=== PATIENT | male | born 1995 | race Caucasian/White ===

== ENCOUNTER 2018-06-11 15:08 | Emergency (ER) | payer BC ==
[2018-06-11 16:03] VITALS: BP 114/54
--- NOTE | 2018-06-11 17:10 | UC ---
Skin Complaint HPI - HPI Summary HPI Summary: pt c/o of "sores" on right anterior upper thigh. Pt is concerned about staph infection. Pt is a student at [employer], "works out" frequently and has HX of staph infection. - History of Current Complaint Chief Complaint: [employer] Time Seen by Provider: 06/11/18 16:57 Stated Complaint: RIGHT LEG/THIGH COMPLAINT Hx Obtained From: Patient Onset/Duration: Gradual Onset, Lasting Days, Still Present Skin Exposure Onset/Duration: Days Ago Timing: Constant Onset Severity: Mild Current Severity: Mild Pain Intensity: 0 Location: Discrete - right upper htigh Character: Redness, Raised Alleviating Factor(s): Unknown Associated Signs & Symptoms: Positive: Tenderness - Allergy/Home Medications Allergies/Adverse Reactions: Allergies Allergy/AdvReac Type Severity Reaction Status Date / Time seasonal Allergy Congestion Uncoded 06/11/18 16:03 Home Medications: Home Medications Fluticasone NASAL SPRAY 50MCG* [Flonase NASAL SPRAY 50MCG*] 1 spray BOTH NARES DAILY PRN 06/11/18 [History Confirmed 06/11/18] Review of Systems Constitutional: Negative Skin: Other - scabs, erythema Eyes: Negative ENT: Negative Respiratory: Negative Cardiovascular: Negative Gastrointestinal: Negative Genitourinary: Negative Motor: Negative Neurovascular: Negative Musculoskeletal: Negative Neurological: Negative Psychological: Negative Is Patient Immunocompromised?: No All Other Systems Reviewed And Are Negative: Yes PMH/Surg Hx/FS Hx/Imm Hx Previously Healthy: Yes - Surgical History Surgical History: None - Family History Known Family History: Positive: Diabetes - paternal grandfather Negative: Respiratory Disease - Social History Occupation: Student - [employer] Lives: With Family Alcohol Use: Weekly Alcohol Amount: 40 Substance Use Type: None Smoking Status (MU): Never Smoked Tobacco Have You Smoked in the Last Year: No - Immunization History Most Recent Influenza Vaccination: none Physical Exam Triage Information Reviewed: Yes Appearance: Well-Appearing Vital Signs: Initial Vital Signs Temp 98.6 F 06/11/18 15:53 Pulse 68 06/11/18 15:53 Resp 18 06/11/18 15:53 BP 114/54 06/11/18 15:53 Pulse Ox 100 06/11/18 15:53 Vital Signs Reviewed: Yes Eye Exam: Normal ENT Exam: Normal Dental Exam: Normal Neck exam: Normal Respiratory: Positive: No respiratory distress Musculoskeletal Exam: Normal Neurological Exam: Normal Psychological Exam: Normal Skin Exam: Other - two healing wounds on right anterior mid thigh, Course/Dx - Differential Diagnoses - Skin Complaint Differential Diagnoses: Cellulitis, MRSA - Diagnoses Provider Diagnoses: healing wounds Discharge - Sign-Out/Discharge Documenting (check all that apply): Patient Departure All imaging exams completed and their final reports reviewed: No Studies - Discharge Plan Condition: Stable Disposition: HOME Prescriptions: Mupirocin 2% OINT* [Bactroban 2 % Oint*] 1 applic TOPICAL Q12H 7 Days #1 tube Patient Education Materials: Acute Wound Care (ED) Referrals: [facility] [Outside] - If Needed No Primary Care Phys,NOPCP [Primary Care Provider] - - Billing Disposition and Condition Condition: STABLE Disposition: Home
== END 2018-06-11 17:15 | disposition home or self-care (01) ==
LOC: UCCORT 15:08
DX: S71.101A Unspecified open wound, right thigh, initial encounter (principal); X58.XXXA Exposure to other specified factors, initial encounter; Y93.9 Activity, unspecified; Y92.9 Unspecified place or not applicable
CPT/HCPCS: 99212; G0463